=== PATIENT | female | born 1980 | race African-American/Black ===

== ENCOUNTER 2017-02-25 16:52 | Day surgery (SDC) | payer OTHER ==
[~2017-02-25] VITALS: Ht 165.1 cm; Wt 72.0 kg
[2017-02-25] MEDS ORDERED: LACTATED RINGERS 1,000 ML IV SCH (17:30)
[2017-02-25] MEDS ORDERED: ONDANSETRON HCL 4MG/2ML VIAL IV PRN (18:00)
[2017-02-25] MEDS ORDERED: MORPHINE SULFATE 4 MG/ML CPJ (NOT FOR IM USE) IV PRN (18:00)
[2017-02-25] MEDS ORDERED: LORAZEPAM 2MG/ML CPJ IV PRN (18:00)
[2017-02-25 18:22] LABS: BASOPHILS % 0.2 % (0.0-2.0); EOSINOPHILS % 0.1 % (0.0-5.0); HEMATOCRIT. 34.5 % (36.0-48.0); HEMOGLOBIN. 11.3 g/dL (12.0-16.0); LYMPHOCYTES % 9.5 % (20.0-50.0); MEAN CORPUSCULAR HEMOGLOBIN 28.2 pg (28.0-32.0); MEAN CORPUSCULAR VOLUME 86.3 fL (81.0-99.0); MONOCYTES % 6.8 % (2.0-8.0); NEUTROPHILS % 83.4 % (40.0-76.0); PLATELET 303 x1000/uL (130-400); RED BLOOD CELL COUNT 3.99 mill/uL (4.2-5.4); RED CELL DISTRIBUTION WIDTH 13.3 % (11.6-14.6)
[2017-02-25 18:28] LABS: CHLORIDE 105 mEq/L (98-107)
[2017-02-25 18:33] LABS: CARBON DIOXIDE 25 mEq/L (21-32)
[2017-02-25 18:34] LABS: PROTHROMBIN TIME 10.2 sec (9.4-11.6)
[2017-02-25] MEDS ORDERED: SKIN ADHESIVE 0.7 GM EA TOP ONE (20:10)
[2017-02-25] MEDS ORDERED: BUPIVACAINE HCL/EPINEPHRINE 0.5%/0.0005 30ML ONE (20:11)
[2017-02-25] MEDS ORDERED: LIDOCAINE HCL 1% 20ML VIAL (Pyxis) INJ ONE (20:18)
[2017-02-25] MEDS ORDERED: PROPOFOL 200MG/20ML VIAL IV ONE (20:18)
[2017-02-25] MEDS ORDERED: SODIUM CHLORIDE 0.9% 10ML VIAL ONE (20:21)
[2017-02-25] MEDS ORDERED: CEFAZOLIN SODIUM 1000MG/VIAL ONE (20:21)
[2017-02-25] MEDS ORDERED: MIDAZOLAM HCL 2 MG/2 ML VIAL ONE (20:22)
[2017-02-25] MEDS ORDERED: FENTANYL CITRATE/PF 50MCG/ML 2ML VIAL ONE (20:22)
[2017-02-25] MEDS ORDERED: ESMOLOL HCL 10MG/ML 10ML VIAL IV ONE (20:26)
[2017-02-25] MEDS ORDERED: DEXAMETHASONE 4MG/ML 1ML VIAL ONE (20:54)
[2017-02-25] MEDS ORDERED: METOCLOPRAMIDE HCL 10MG/2ML VIAL ONE (20:55)
[2017-02-25] MEDS ORDERED: ONDANSETRON HCL 4MG/2ML VIAL ONE (20:55)
[2017-02-25] MEDS ORDERED: NEOSTIGMINE METHYLSULFATE 1MG/ML 10 ML VIAL ONE (21:11)
[2017-02-25] MEDS ORDERED: GLYCOPYRROLATE 0.2 MG/ML 2ML VIAL ONE (21:11)
[2017-02-25] MEDS ORDERED: HYDROCODONE/ACETAMINOPHEN 5/325MG TABLET PO PRN (22:00)
[2017-02-25] MEDS ORDERED: MORPHINE SULFATE 10 MG/ML CPJ IV PRN ×2 (22:15→22:30)
[2017-02-25 22:28] VITALS: BP 126/80
== END 2017-02-25 23:15 | disposition home or self-care (01) ==
LOC: ER 18:09 → OR 18:30 → UNDOADMIN 20:13 → ORIP 20:13 → OR 23:15
PROVIDERS: ATTEND Obstetrics & Gynecology Obstetrics
DX: O00.80 Other ectopic pregnancy without intrauterine pregnancy (principal); Z80.8 Family history of malignant neoplasm of other organs or systems
CPT/HCPCS: 36415; 58661; 80048; 85025; 85610; 86850; 86900; 86901; 88305; 96361; 96374; 99285; A4216; G0168; J0171; J0690; J1100; J2060; J2250; J2270; J2405; J2710; J2765; J3010; J3490; J7120; J2704

== ENCOUNTER 2017-07-09 17:51 | Emergency (ER) | payer OTHER ==
[~2017-07-09] VITALS: Ht 165.1 cm; Wt 73.0 kg
[2017-07-09 21:53] LABS: BASOPHILS % 0.3 % (0.0-2.0); EOSINOPHILS % 0.2 % (0.0-5.0); HEMATOCRIT. 35.7 % (36.0-48.0); HEMOGLOBIN. 11.6 g/dL (12.0-16.0); LYMPHOCYTES % 16.5 % (20.0-50.0); MEAN CORPUSCULAR HEMOGLOBIN 27.7 pg (28.0-32.0); MEAN CORPUSCULAR VOLUME 85.2 fL (81.0-99.0); MEAN PLATELET VOLUME 7.7 fl (7.4-10.4); MONOCYTES % 5.6 % (2.0-8.0); NEUTROPHILS % 77.4 % (40.0-76.0); PLATELET 403 x1000/uL (130-400); RED BLOOD CELL COUNT 4.19 mill/uL (4.2-5.4); RED CELL DISTRIBUTION WIDTH 13.7 % (11.6-14.6)
[2017-07-09 22:00] LABS: PROTHROMBIN TIME 10.7 sec (9.4-11.6)
[2017-07-09 22:05] LABS: CHLORIDE 105 mEq/L (98-107)
[2017-07-09] MEDS ORDERED: SODIUM CHLORIDE 0.9% 1,000 ML IV ONE (22:09)
[2017-07-09 22:17] LABS: CARBON DIOXIDE 27 mEq/L (21-32)
[2017-07-09 22:37] LABS: CHLORIDE 105 mEq/L (98-107)
[2017-07-09 22:40] LABS: CLARITY URINE CLOUDY (CLEAR); COLOR URINE RED (YELLOW); HCG SCREEN POSITIVE; KETONES URINE NEGATIVE (NEGATIVE); LEUKOCYTE ESTERASE URINE TRACE (NEGATIVE); NITRITE URINE NEGATIVE (NEGATIVE); OCCULT BLOOD URINE 3+ (NEGATIVE); PROTEIN URINE 3+ (NEGATIVE); SPECIFIC GRAVITY URINE 1.011 (1.005-1.030); UROBILINOGEN URINE 0.2 E.U./dL (0.2-1.0)
[2017-07-09 22:54] LABS: CARBON DIOXIDE 26 mEq/L (21-32)
[2017-07-09 23:01] LABS: B-HCG QUANTITATIVE 4153 mIU/mL (<3)
[2017-07-10 01:27] VITALS: BP 123/65
[2017-07-12] MEDS ORDERED: NITR100C PO (16:38)
== END 2017-07-10 01:38 | disposition home or self-care (01) ==
LOC: ER 18:25
DX: O03.88 Urinary tract infection following complete or unspecified spontaneous abortion (principal); N39.0 Urinary tract infection, site not specified; Z3A.09 9 weeks gestation of pregnancy
CPT/HCPCS: 36415; 76801; 80053; 81001; 83690; 84702; 84703; 85025; 85610; 86850; 86900; 86901; 96360; 99285; Z7610; J7030

== ENCOUNTER 2017-07-13 11:17 | Day surgery (SDC) | payer OTHER ==
[~2017-07-13] VITALS: Ht 166.4 cm; Wt 76.2 kg
[~2017-07-13 11:17] MED LIST: NITR100C PO
[2017-07-13] MEDS ORDERED: LACTATED RINGERS 1,000 ML IV SCH (12:00)
[2017-07-13 12:50] LABS: CLARITY URINE CLEAR (CLEAR); COLOR URINE YELLOW (YELLOW); KETONES URINE NEGATIVE (NEGATIVE); LEUKOCYTE ESTERASE URINE TRACE (NEGATIVE); NITRITE URINE NEGATIVE (NEGATIVE); OCCULT BLOOD URINE 3+ (NEGATIVE); PROTEIN URINE NEGATIVE (NEGATIVE); SPECIFIC GRAVITY URINE 1.021 (1.005-1.030); UROBILINOGEN URINE 0.2 E.U./dL (0.2-1.0)
[2017-07-13 12:53] LABS: UCG SCREEN POSITIVE
[2017-07-13 13:04] LABS: BASOPHILS % 0.2 % (0.0-2.0); EOSINOPHILS % 0.4 % (0.0-5.0); HEMATOCRIT. 29.5 % (36.0-48.0); HEMOGLOBIN. 9.8 g/dL (12.0-16.0); LYMPHOCYTES % 19.7 % (20.0-50.0); MEAN CORPUSCULAR HEMOGLOBIN 28.3 pg (28.0-32.0); MEAN CORPUSCULAR VOLUME 85.7 fL (81.0-99.0); MEAN PLATELET VOLUME 7.7 fl (7.4-10.4); MONOCYTES % 7.2 % (2.0-8.0); NEUTROPHILS % 72.5 % (40.0-76.0); PLATELET 312 x1000/uL (130-400); RED BLOOD CELL COUNT 3.44 mill/uL (4.2-5.4); RED CELL DISTRIBUTION WIDTH 13.2 % (11.6-14.6)
[2017-07-13] MEDS ORDERED: MIDAZOLAM HCL 2 MG/2 ML VIAL ONE (14:34)
[2017-07-13] MEDS ORDERED: FENTANYL CITRATE/PF 50MCG/ML 2ML VIAL ONE (14:34)
[2017-07-13] MEDS ORDERED: ONDANSETRON HCL 4MG/2ML VIAL IV PRN (14:45)
[2017-07-13] MEDS ORDERED: HYDROMORPHONE HCL/PF 2MG/ML CPJ IV PRN (14:45)
[2017-07-13] MEDS ORDERED: MEPERIDINE HCL/PF 25MG/ML CPJ IV PRN (14:45)
[2017-07-13] MEDS ORDERED: LABETALOL 5MG/ML SYR 20 MG/4 ML SYRINGE IV PRN (14:45)
[2017-07-13] MEDS ORDERED: PROPOFOL 200MG/20ML VIAL IV ONE (14:51)
[2017-07-13] MEDS ORDERED: DEXAMETHASONE 4MG/ML 1ML VIAL ONE (14:51)
[2017-07-13] MEDS ORDERED: LIDOCAINE HCL/PF 1% 10 MG/ML 5ML VIAL ONE (14:51)
[2017-07-13] MEDS ORDERED: ONDANSETRON HCL 4MG/2ML VIAL ONE (14:51)
[2017-07-13] MEDS ORDERED: OXYTOCIN 10 UNITS/ML 1ML ONE (14:56)
[2017-07-13] MEDS ORDERED: SODIUM CHLORIDE 0.9% 10ML VIAL ONE (14:57)
[2017-07-13] MEDS ORDERED: CEFAZOLIN SODIUM 1000MG/VIAL ONE (14:57)
== END 2017-07-13 17:30 | disposition home or self-care (01) ==
LOC: OR 11:17
PROVIDERS: ATTEND Obstetrics & Gynecology Obstetrics
DX: O03.4 Incomplete spontaneous abortion without complication (principal); Z79.899 Other long term (current) drug therapy; Z98.890 Other specified postprocedural states
CPT/HCPCS: 36415; 59812; 81001; 81025; 85025; 86900; 86901; 88305; A4216; J0690; J1100; J2250; J2405; J3010; J3490; J7120; J2704